=== PATIENT | male | born 1945 | race Caucasian/White ===

== ENCOUNTER 2017-09-16 10:52 | Emergency (ER) | payer MEDICARE, OTHER ==
[~2017-09-16] VITALS: Ht 177.8 cm; Wt 83.9 kg
[~2017-09-16 10:52] MED LIST: ASCO500 PO; ASPI325EC PO; ATOR20 PO; BENZ.5 PO; BENZ2 PO; CALCAVITDA PO; CHOL10002 PO; DILT120ERA PO; DILT240ER PO; DOC250 PO; FISH1000 PO; FLUT.05NI; GLUCOSA; HYDACE10B PO; METO50ER PO; MULVITMIND PO; NIAC500 PO; NIAC500ER PO; NITR.4SL SL; OMEG1CAP30 PO; OMEP20ER PO; PSYLLIUM PO; PYRI100 PO; SELENIUM200 MC1 PO; SIMV10 PO; THIO; THIO2 PO; VITNEPH PO; [UNRECOGNIZED DRUG - OTHER]
[2017-09-16 11:31] LABS: BASOPHILS ABSOLUTE AUTO 0.06 K/mm3 (0.00-0.23); BASOPHILS PERCENT AUTO 1 % (0-2); EOSINOPHILS PERCENT AUTO 2 % (0-6); Hematocrit 42.1 % (37.0-53.0); Hemoglobin 14.7 g/dL (13.5-17.5); IMMATURE GRAN ABSOLUTE AUTO 0.01 K/mm3 (0.00-0.10); IMMATURE GRAN PERCENT AUTO 0 % (0-1); LYMPHOCYTES PERCENT AUTO 21 % (21-46); MONOCYTES ABSOLUTE AUTO 0.51 K/mm3 (0.16-1.47); MONOCYTES PERCENT AUTO 8 % (4-13); Mean Corpuscular HGB Conc 34.9 g/dL (31.5-36.5); Mean Corpuscular Volume 86 fL (80-100); Mean Platelet Volume 11.2 fL (9.1-12.4); NEUTROPHILS ABSOLUTE AUTO 4.58 K/mm3 (1.96-9.15); NEUTROPHILS PERCENT AUTO 69 % (41-73); Platelet Count 206 K/mm3 (150-400); RDW Coefficient Variation 12.6 % (11.7-14.2); RDW Standard Deviation 39.2 fL (35.1-46.3); White Blood Cell Count 6.66 K/mm3 (4.00-11.30)
[2017-09-16 11:50] LABS: Alanine Aminotransfer (ALT/SGP 39 U/L (12-78); Albumin, Blood 3.6 g/dL (3.4-5.0); Alk Phos 63 U/L (50-136); Anion Gap 10 mmol/L (6-16); Aspartate Aminotrans (AST/SGOT 15 U/L (12-37); Bilirubin, Total 0.5 mg/dL (0.1-1.0); Blood Urea Nitrogen 15 mg/dL (8-24); Bun/Creatinine Ratio 23.1 (12.0-20.0); CO2, Blood 24 mmol/L (21-32); Calcium, Blood 9.1 mg/dL (8.5-10.1); Chloride, Blood 105 mmol/L (98-108); Creatinine, Blood 0.65 mg/dL (0.60-1.20); Globulin, Blood 3.7 g/dL (2.2-4.0); Glomerular Filtration Rate >60 (60-); Glucose, Blood 121 mg/dL (70-99); Potassium, Blood 3.8 mmol/L (3.5-5.5); Sodium, Blood 139 mmol/L (136-145); Total Protein, Blood 7.3 g/dL (6.4-8.2); Troponin I <0.015 ng/mL (0.000-0.040)
[2017-09-16] MEDS ORDERED: LISI5 PO (11:54)
[2017-09-16] MEDS ORDERED: PSYSENPA PO (11:55)
[2017-09-16] MEDS ORDERED: METO50 PO (11:55)
[2017-09-16] MEDS ORDERED: Fish Oil 10001000 MG GT (11:55)
== END 2017-09-16 14:37 | disposition home or self-care (01) ==
LOC: ER 10:52
PROVIDERS: Emergency Medicine
DX: R07.89 Other chest pain (principal); Z88.0 Allergy status to penicillin; Z88.8 Allergy status to other drugs, medicaments and biological substances; Z79.899 Other long term (current) drug therapy; Z79.82 Long term (current) use of aspirin; Z87.891 Personal history of nicotine dependence
CPT/HCPCS: 36415; 71046; 80053; 83880; 84484; 85025; 93005; 93010; 99283

== ENCOUNTER 2019-03-29 06:04 | Emergency (ER) | payer OTHER, MEDICARE ==
[~2019-03-29] VITALS: Ht 182.9 cm; Wt 117.9 kg
[~2019-03-29 06:04] MED LIST changes: +Fish Oil 10001000 MG GT; +LISI5 PO; +METO50 PO; +PSYSENPA PO
[2019-03-29 06:53] LABS: BASOPHILS ABSOLUTE AUTO 0.04 K/mm3 (0.00-0.23); BASOPHILS PERCENT AUTO 1 % (0-2); EOSINOPHILS PERCENT AUTO 2 % (0-6); Hematocrit 45.6 % (37.0-53.0); Hemoglobin 15.5 g/dL (13.5-17.5); IMMATURE GRAN ABSOLUTE AUTO 0.03 K/mm3 (0.00-0.10); IMMATURE GRAN PERCENT AUTO 1 % (0-1); LYMPHOCYTES PERCENT AUTO 15 % (21-46); MONOCYTES ABSOLUTE AUTO 0.49 K/mm3 (0.16-1.47); MONOCYTES PERCENT AUTO 8 % (4-13); Mean Corpuscular HGB 29.9 pg (26.0-34.0); Mean Corpuscular Volume 88 fL (80-100); NEUTROPHILS ABSOLUTE AUTO 4.89 K/mm3 (1.96-9.15); NEUTROPHILS PERCENT AUTO 75 % (41-73); Platelet Count 209 K/mm3 (150-400); RDW Coefficient Variation 12.7 % (11.7-14.2); RDW Standard Deviation 41.1 fL (35.1-46.3); Red Blood Cell Count 5.19 M/mm3 (4.30-5.90); White Blood Cell Count 6.55 K/mm3 (4.00-11.30)
[2019-03-29 07:10] LABS: Alanine Aminotransfer (ALT/SGP 46 U/L (12-78); Albumin, Blood 3.7 g/dL (3.4-5.0); Albumin/Globulin Ratio 0.9 (0.8-1.8); Alk Phos 54 U/L (50-136); Anion Gap 8 mmol/L (6-16); Aspartate Aminotrans (AST/SGOT 18 U/L (12-37); Bilirubin, Total 0.4 mg/dL (0.1-1.0); Blood Urea Nitrogen 15 mg/dL (8-24); Bun/Creatinine Ratio 21.3 (12.0-20.0); CO2, Blood 26 mmol/L (21-32); Chloride, Blood 107 mmol/L (98-108); Globulin, Blood 3.9 g/dL (2.2-4.0); Glomerular Filtration Rate >60 (60-); Glucose, Blood 125 mg/dL (70-99); Potassium, Blood 3.9 mmol/L (3.5-5.5); Sodium, Blood 141 mmol/L (136-145); Total Protein, Blood 7.6 g/dL (6.4-8.2)
[2019-03-29] MEDS ORDERED: MOTION RELIEF25 MG PO ×2 (07:54→08:09)
== END 2019-03-29 08:10 | disposition home or self-care (01) ==
LOC: ER 06:04
PROVIDERS: Emergency Medicine
DX: R42 Dizziness and giddiness (principal); Z88.0 Allergy status to penicillin; Z88.8 Allergy status to other drugs, medicaments and biological substances; Z79.899 Other long term (current) drug therapy; Z79.82 Long term (current) use of aspirin; Z87.891 Personal history of nicotine dependence
CPT/HCPCS: 29125; 36415; 80053; 85025; 93005; 93010; 99285-25

== ENCOUNTER 2019-08-07 07:02 | Emergency (ER) | payer MEDICARE ==
[~2019-08-07] VITALS: Ht 182.9 cm; Wt 113.4 kg
[~2019-08-07 07:02] MED LIST changes: +MOTION RELIEF25 MG PO
[2019-08-07 07:53] LABS: BASOPHILS ABSOLUTE AUTO 0.07 K/mm3 (0.00-0.23); BASOPHILS PERCENT AUTO 1 % (0-2); EOSINOPHILS ABSOLUTE AUTO 0.08 K/mm3 (0.00-0.68); EOSINOPHILS PERCENT AUTO 1 % (0-6); Hematocrit 45.8 % (37.0-53.0); Hemoglobin 16.1 g/dL (13.5-17.5); IMMATURE GRAN ABSOLUTE AUTO 0.04 K/mm3 (0.00-0.10); IMMATURE GRAN PERCENT AUTO 0 % (0-1); LYMPHOCYTES ABSOLUTE AUTO 0.81 K/mm3 (0.84-5.20); LYMPHOCYTES PERCENT AUTO 9 % (21-46); MONOCYTES ABSOLUTE AUTO 0.55 K/mm3 (0.16-1.47); MONOCYTES PERCENT AUTO 6 % (4-13); Mean Corpuscular HGB 30.7 pg (26.0-34.0); Mean Corpuscular HGB Conc 35.2 g/dL (31.5-36.5); Mean Corpuscular Volume 87 fL (80-100); Mean Platelet Volume 11.3 fL (9.1-12.4); NEUTROPHILS ABSOLUTE AUTO 7.56 K/mm3 (1.96-9.15); NEUTROPHILS PERCENT AUTO 83 % (41-73); Platelet Count 202 K/mm3 (150-400); RDW Coefficient Variation 12.8 % (11.7-14.2); RDW Standard Deviation 40.5 fL (35.1-46.3); Red Blood Cell Count 5.25 M/mm3 (4.30-5.90); White Blood Cell Count 9.11 K/mm3 (4.00-11.30)
[2019-08-07 08:10] LABS: Alanine Aminotransfer (ALT/SGP 40 U/L (12-78); Albumin, Blood 3.9 g/dL (3.4-5.0); Alk Phos 54 U/L (50-136); Anion Gap 8 mmol/L (6-16); Aspartate Aminotrans (AST/SGOT 17 U/L (12-37); Bilirubin, Total 0.4 mg/dL (0.1-1.0); Blood Urea Nitrogen 22 mg/dL (8-24); Bun/Creatinine Ratio 28.2 (12.0-20.0); CO2, Blood 26 mmol/L (21-32); Calcium, Blood 8.7 mg/dL (8.5-10.1); Chloride, Blood 106 mmol/L (98-108); Creatinine, Blood 0.78 mg/dL (0.60-1.20); Globulin, Blood 3.8 g/dL (2.2-4.0); Glomerular Filtration Rate >60 (60-); Glucose, Blood 118 mg/dL (70-99); Potassium, Blood 3.7 mmol/L (3.5-5.5); Sodium, Blood 140 mmol/L (136-145); Total Protein, Blood 7.7 g/dL (6.4-8.2); Troponin I <0.015 ng/mL (0.000-0.040)
== END 2019-08-07 09:43 | disposition home or self-care (01) ==
LOC: ER 07:02
PROVIDERS: Emergency Medicine
DX: R42 Dizziness and giddiness (principal); R11.2 Nausea with vomiting, unspecified; I25.10 Atherosclerotic heart disease of native coronary artery without angina pectoris; K21.9 Gastro-esophageal reflux disease without esophagitis; F20.9 Schizophrenia, unspecified; F41.9 Anxiety disorder, unspecified; Z87.891 Personal history of nicotine dependence; Z79.899 Other long term (current) drug therapy; Z79.82 Long term (current) use of aspirin
CPT/HCPCS: 36415; 70450; 80053; 84484; 85025; 93005; 93010; 99284-25

== ENCOUNTER 2019-12-30 12:47 | Inpatient (IN) | payer OTHER, MEDICARE ==
[~2019-12-30] VITALS: Ht 182.9 cm; Wt 111.8 kg
[~2019-12-30 12:47] MED LIST changes: +CODACE30 PO; +METPRE4DP PO; +Robaxin-750750 MG PO
[2019-12-30] MEDS ORDERED: ASPI325EC PO (14:53)
[2019-12-30] MEDS ORDERED: ASCO500 PO (14:53)
[2019-12-30] MEDS ORDERED: BENZ1 PO (14:54)
[2019-12-30] MEDS ORDERED: OYSTER SHELL 51 EACH PO (14:55)
[2019-12-30] MEDS ORDERED: LISI5 PO (14:56)
[2019-12-30] MEDS ORDERED: Loratadine10 MG PO (14:56)
[2019-12-30] MEDS ORDERED: DOC250 PO (14:56)
[2019-12-30] MEDS ORDERED: METO50ER PO (14:57)
[2019-12-30] MEDS ORDERED: MULTI VITAMIN1 EACH PO (14:57)
[2019-12-30] MEDS ORDERED: VITAMIN B-625 MG PO (14:58)
[2019-12-30] MEDS ORDERED: THIOTHIXENE PO (14:58)
[2019-12-30] MEDS ORDERED: ZOCOR20 MG PO (14:58)
[2019-12-30 18:04] LABS: BASOPHILS ABSOLUTE AUTO 0.05 K/mm3 (0.00-0.23); BASOPHILS PERCENT AUTO 1 % (0-2); EOSINOPHILS ABSOLUTE AUTO 0.16 K/mm3 (0.00-0.68); EOSINOPHILS PERCENT AUTO 2 % (0-6); Hematocrit 45.2 % (37.0-53.0); Hemoglobin 15.9 g/dL (13.5-17.5); IMMATURE GRAN ABSOLUTE AUTO 0.03 K/mm3 (0.00-0.10); IMMATURE GRAN PERCENT AUTO 0 % (0-1); LYMPHOCYTES ABSOLUTE AUTO 1.07 K/mm3 (0.84-5.20); LYMPHOCYTES PERCENT AUTO 12 % (21-46); MONOCYTES ABSOLUTE AUTO 0.75 K/mm3 (0.16-1.47); MONOCYTES PERCENT AUTO 8 % (4-13); Mean Corpuscular HGB 30.8 pg (26.0-34.0); Mean Corpuscular HGB Conc 35.2 g/dL (31.5-36.5); Mean Corpuscular Volume 87 fL (80-100); Mean Platelet Volume 11.4 fL (9.1-12.4); NEUTROPHILS ABSOLUTE AUTO 7.12 K/mm3 (1.96-9.15); NEUTROPHILS PERCENT AUTO 78 % (41-73); Platelet Count 233 K/mm3 (150-400); RDW Coefficient Variation 12.6 % (11.7-14.2); RDW Standard Deviation 40.2 fL (35.1-46.3); Red Blood Cell Count 5.17 M/mm3 (4.30-5.90); White Blood Cell Count 9.18 K/mm3 (4.00-11.30)
[2019-12-30 18:37] LABS: Alanine Aminotransfer (ALT/SGP 44 U/L (12-78); Albumin, Blood 3.7 g/dL (3.4-5.0); Albumin/Globulin Ratio 0.9 (0.8-1.8); Alk Phos 60 U/L (50-136); Anion Gap 8 mmol/L (6-16); Aspartate Aminotrans (AST/SGOT 17 U/L (12-37); Bilirubin, Total 0.9 mg/dL (0.1-1.0); Blood Urea Nitrogen 12 mg/dL (8-24); Bun/Creatinine Ratio 22.4 (12.0-20.0); CO2, Blood 25 mmol/L (21-32); Calcium, Blood 9.2 mg/dL (8.5-10.1); Chloride, Blood 107 mmol/L (98-108); Creatinine, Blood 0.54 mg/dL (0.60-1.20); Globulin, Blood 4.1 g/dL (2.2-4.0); Glomerular Filtration Rate >60 (60-); Glucose, Blood 118 mg/dL (70-99); Potassium, Blood 3.8 mmol/L (3.5-5.5); Sodium, Blood 140 mmol/L (136-145); Total Protein, Blood 7.8 g/dL (6.4-8.2)
[2019-12-30 19:27] LABS: CPK Creatine Kinase 212 U/L (39-308)
[2019-12-31 03:13] LABS: Source, Urine Catheter
[2019-12-31 03:14] LABS: Bilirubin, Urine Neg (Neg); Blood, Urine 1+ (Neg); Glucose Qualitative, Urine Neg (Neg); Ketones, Urine 3+ (Neg); Leukocyte Esterase, Urine Neg (Neg); Nitrite, Urine Neg (Neg); Protein, Urine 1+ (Neg); Specific Gravity, Urine 1.025 (1.003-1.022); Urobilinogen, Urine 1+ (Normal)
[2019-12-31 03:25] LABS: Appearance, Urine Clear (Clear); Bacteria Not Seen /hpf; Color, Urine Yellow (P-Yellow); Red Blood Cells, Urine 0-2 /hpf (0-2); Squamous Epithelial Cells Not Seen /hpf (Few); White Blood Cells, Urine Not Seen /hpf (0-5)
--- NOTE | 2019-12-31 04:06 | NUR ---
SHIFT SUMMARY: PATIENT ARRIVED TO [facility] AT APPROX 0130 VIA GURNEY FROM ER, SLIDE TRANSFER FROM GURNEY TO BED, MAX ASSIST. PATIENT SKIN IS C/D/I. PATIENT C/O PAIN IN LEGS AND LOWER BACK, SEE EMAR. ADMISSION COMPLETED, PATIENT ORIENTED TO ROOM, CALL LIGHT AND HOSPITAL POLICES. PATIENT BLADDER SCAN READING OVER 700 ML IN THE BLADDER, PATIENT EXPERIENCING SAME ISSUE IN ER. GASPAR PLACED PER BOILING HOUSE OILER MARILY ORDER. VSS, BED LOW AND LOCKED, CALL LIGHT WITHIN REACH.
[2019-12-31 04:37] LABS: BASOPHILS ABSOLUTE AUTO 0.05 K/mm3 (0.00-0.23); BASOPHILS PERCENT AUTO 1 % (0-2); EOSINOPHILS ABSOLUTE AUTO 0.24 K/mm3 (0.00-0.68); EOSINOPHILS PERCENT AUTO 3 % (0-6); Hematocrit 43.8 % (37.0-53.0); Hemoglobin 15.1 g/dL (13.5-17.5); IMMATURE GRAN ABSOLUTE AUTO 0.02 K/mm3 (0.00-0.10); IMMATURE GRAN PERCENT AUTO 0 % (0-1); LYMPHOCYTES ABSOLUTE AUTO 1.58 K/mm3 (0.84-5.20); LYMPHOCYTES PERCENT AUTO 22 % (21-46); MONOCYTES ABSOLUTE AUTO 0.78 K/mm3 (0.16-1.47); MONOCYTES PERCENT AUTO 11 % (4-13); Mean Corpuscular HGB 30.2 pg (26.0-34.0); Mean Corpuscular HGB Conc 34.5 g/dL (31.5-36.5); Mean Corpuscular Volume 88 fL (80-100); Mean Platelet Volume 11.7 fL (9.1-12.4); NEUTROPHILS ABSOLUTE AUTO 4.68 K/mm3 (1.96-9.15); NEUTROPHILS PERCENT AUTO 64 % (41-73); Platelet Count 227 K/mm3 (150-400); RDW Coefficient Variation 12.8 % (11.7-14.2); RDW Standard Deviation 41.3 fL (35.1-46.3); White Blood Cell Count 7.35 K/mm3 (4.00-11.30)
[2019-12-31 04:52] LABS: Anion Gap 6 mmol/L (6-16); Blood Urea Nitrogen 18 mg/dL (8-24); CO2, Blood 26 mmol/L (21-32); Calcium, Blood 9.1 mg/dL (8.5-10.1); Chloride, Blood 107 mmol/L (98-108); Creatinine, Blood 0.64 mg/dL (0.60-1.20); Glomerular Filtration Rate >60 (60-); Glucose, Blood 100 mg/dL (70-99); Potassium, Blood 3.6 mmol/L (3.5-5.5); Sodium, Blood 139 mmol/L (136-145)
--- NOTE | 2019-12-31 07:48 | NUR ---
ASSUMED CARE AT 0700, LAYING IN LOW FOWLERS SUPINE TALKING ON PHONE. MOVES ARMS WITHOUT DIFFICULTY. MOVES BOTH LEGS WITH SLOW MOVEMENT. REPORTS PAIN AND SPASMS DECREASED. A/A/OX4 WITH HX OF SCHIZOPHRENIA AND INTERMITANT FLIGHTS OF IDEAS. PLAN OF CARE REVIEWED FOR DAY, WILL CONTINUE TO MONITOR.
--- NOTE | 2019-12-31 11:19 | NUR ---
ASSISTED TO CHAIR AT BEDSIDE WITH OT, WALKER AND GAIT BELT USED. SLOW AND STEADY ON FEET.
--- NOTE | 2019-12-31 13:41 | NUR ---
HOME MEDS SENT TO PHARMACY FOR STORAGE.
--- NOTE | 2019-12-31 18:14 | NUR ---
SHIFT SUMMARY; A/A/OX3 DURING SHIFT TODAY. PT EVAL AND ASSISTED TO CHAIR WITH GAIT BELT AND WALKER. MOVES ALL FOUR EXTREMETIES, Q2 REPOSITIONING MAINTAINED TODAY. HOME PSYCH MEDS BROUGHT BY FRIEND AND SENT TO PHARMACY FOR HOSPITAL DISPENSE, VERIFIED AND LOCKED IN PT DRAWER. MULTIPLE FLIGHTS OF IDEAS THROUGHOUT SHIFT APPEARING MANIC AT TIMES. GASPAR IN PLACE DRAINING TOÑA URINE TO GRAVITY. CUSTOMER SUCCESS MANAGER WORKER WITH PT FOR POSSIBLE SNIFF PLACEMENT. PT REQUESTS [facility] THAT IS WHERE HIS GIRLFRIEND IS. NO ACUTE CHANGES DURING SHIFT TODAY. WILL CONTINUE TO MONITOR AND TREAT UNTIL CHANGE OF SHIFT.
--- NOTE | 2019-12-31 21:40 | NUR ---
ASSUMED CARE AT 2030. SEE [facility] FOR FULL ASSESSMENT. PATIENT ALERT, TALKING WITH OUT STOPPING. FLIGHT OF IDEAS, THINKING SOMEONE PUT LIBERTY CAP MUSHROOMS ON HIS PIZZA. BED IN LOW POSITION, CALL LIGHT IN REACH.
--- NOTE | 2020-01-01 05:47 | NUR ---
NO CHANGES SINCE INITIAL ASSESSMENT. PATIENT RESTING, LESS FLIGHT OF IDEAS THIS AM
--- NOTE | 2020-01-01 14:40 | NUR ---
IN HOUSE TRANSFER TO MEDICAL FLOOR. ASSUMED CARE, REPORT FROM NOHEMY NAPIER.
--- NOTE | 2020-01-01 18:30 | NUR ---
SHIFT ASSESMENT; IN HOUSE TRANSFER FROM PCU. A/A/OX4 WITH HX OF SCHIZOPHRENIA AND INTERMITANT FLIGHTS OF IDEAS. REMAINS WEAK TO BILATERAL LEGS WITH TINGLING PER PT. MOVES TO CHAIR IN ROOM WITH WALKER AND 1 PERSON ASSIST WITH GAIT BELT. DR. HUMPHREY TO ROOM TODAY FOR CONSULT. SURGERY PLANNED FOR AM, WILL BE NPO AFTER MIDNIGHT. MEDICATED THROUHOUT SHIFT PER ORDERS. KCL INFUSING AT 75ML/HR AT THIS TIME. WILL CONTINUE TO MONITOR AND TREAT PER ORDERS UNTIL CHANGE OF SHIFT.
--- NOTE | 2020-01-02 10:06 | NUR ---
LATE ENTRY 0928 PT TRANSFERED TO [facility] FROM [facility] VIA GURNY. History, Chart, Medications and Allergies reviewed before start of procedure. Lungs clear T/O to Auscultation. Patient confirms NPO status and agrees with scheduled surgery.
--- NOTE | 2020-01-02 10:07 | NUR ---
PT'S GLASSES PLACED IN PACU. PT HAS HIS "GOOD LUCK" NECKLACE PLACED IN A BAG AND PINNED TO HIS GOWN.
--- NOTE | 2020-01-02 12:08 | NUR ---
TRANSFER TO SURGICAL FLOOR PATIENT TRANSPORTED FOR DISCECTOMY THIS MORNING. PATIENT WILL TRANSFER TO SURGICAL FLOOR AFTER SURGERY. REPORT GIVEN TO RECEIVING SURGICAL FLOOR NURSE ABDIRAHMAN.
--- NOTE | 2020-01-02 16:01 | NUR ---
1500 ARRIVED TO 213 FROM PACU, ALERT AND TALKATIVE. PT TELLS ME HE FEELS SO MUCH BETTER AFTER SURGERY THAN HE DID BEFORE SURGERY AND STATES THAT HE HAS NO PAIN AT THIS TIME. MEDIPORE DRESSING DRY AND INTACT TO LUMBAR AREA. PT MOVES ALL EXTREMITIES, DENIES ANY NUMBNESS OR TINGLING.
--- NOTE | 2020-01-02 17:02 | NUR ---
SUMMARY PT DENIES PAIN, LUMBAR DRESSING DRY AND INTACT. PT TALKATIVE, COOPERATIVE WITH FLIGHT OF IDEAS. PT DENIES NUMBNESS OR TINGLING, STATES HE FEELS MUCH BETTER THAB BEFORE SURGERY
[2020-01-03 04:28] LABS: BASOPHILS ABSOLUTE AUTO 0.04 K/mm3 (0.00-0.23); BASOPHILS PERCENT AUTO 0 % (0-2); EOSINOPHILS ABSOLUTE AUTO 0.13 K/mm3 (0.00-0.68); EOSINOPHILS PERCENT AUTO 1 % (0-6); Hematocrit 38.3 % (37.0-53.0); Hemoglobin 13.1 g/dL (13.5-17.5); IMMATURE GRAN ABSOLUTE AUTO 0.02 K/mm3 (0.00-0.10); IMMATURE GRAN PERCENT AUTO 0 % (0-1); LYMPHOCYTES ABSOLUTE AUTO 1.47 K/mm3 (0.84-5.20); LYMPHOCYTES PERCENT AUTO 16 % (21-46); MONOCYTES ABSOLUTE AUTO 0.76 K/mm3 (0.16-1.47); MONOCYTES PERCENT AUTO 8 % (4-13); Mean Corpuscular HGB 30.4 pg (26.0-34.0); Mean Corpuscular HGB Conc 34.2 g/dL (31.5-36.5); Mean Corpuscular Volume 89 fL (80-100); Mean Platelet Volume 11.7 fL (9.1-12.4); NEUTROPHILS ABSOLUTE AUTO 7.04 K/mm3 (1.96-9.15); NEUTROPHILS PERCENT AUTO 75 % (41-73); Platelet Count 208 K/mm3 (150-400); RDW Coefficient Variation 12.4 % (11.7-14.2); RDW Standard Deviation 41.1 fL (35.1-46.3); Red Blood Cell Count 4.31 M/mm3 (4.30-5.90); White Blood Cell Count 9.46 K/mm3 (4.00-11.30)
[2020-01-03 04:51] LABS: Albumin, Blood 2.7 g/dL (3.4-5.0); Anion Gap 5 mmol/L (6-16); Blood Urea Nitrogen 13 mg/dL (8-24); Bun/Creatinine Ratio 23.4 (12.0-20.0); CO2, Blood 25 mmol/L (21-32); Calcium, Blood 8.4 mg/dL (8.5-10.1); Chloride, Blood 110 mmol/L (98-108); Creatinine, Blood 0.56 mg/dL (0.60-1.20); Glomerular Filtration Rate >60 (60-); Glucose, Blood 108 mg/dL (70-99); Magnesium, Blood 1.8 mg/dL (1.6-2.4); Phosphorus, Blood 3.9 mg/dL (2.5-4.9); Sodium, Blood 140 mmol/L (136-145)
--- NOTE | 2020-01-03 05:51 | NUR ---
PATIENT HAS DONE WELL THROUGHOUT THE NIGHT. COMPLAINS OF MILD PAIN WITH MOVING IN BED AND LAYING FLAT. HAS NOT REQUESTED PAIN MEDICATION. HE IS AWAKE AND ALERT AND ORIENTED. HE IS CONVERSATIONAL ABOUT WORLD TOPICS. HIS SPINE DRESSING IS C/D/I. HE STATES THAT HE WOULD LIKE HIS CATHETER OUT SO THAT HE CAN TAKE A SHOWER. wHILE PERFORMING CATH CARE THIS AM, PATIENT STATED TO BE CAREFUL BECAUSE HE CURRENTLY HAS AN OUT BREAK OF HERPES. THERE IS A 2X2 CM RAISED BUMPY REDDENED AREA ON THE VENTRAL SIDE OF THE PENIS. NO OTHER ACUTE CHANGES.
--- NOTE | 2020-01-03 18:51 | NUR ---
SUMMARY: PT IS POD1 DISCECTOMY. NO ACUTE CHANGE TODAY. VSS, A/OX4, DOES SAY RANDOM THINGS AT TIMES. PT ABLE TO WORK WITH PHYSICAL THERAPY TODAY, SEE NOTES. PT LOG ROLLED WHEN REPOSITIONED IN BED. AQUACEL DRESSING CHANGED. PT HAS VOIDED SINCE HUBERT LEZAMA. PT HAS DENIED PAIN, N/V. NO SAFETY CONCERNS AT THIS TIME.
--- NOTE | 2020-01-04 04:59 | NUR ---
POD 2 S/P L2, L3 DISCECTOMY. PT VSS TO NIGHT. AQUACEL DRESSING CDI. PT REP PAIN PARIS, DECLINED NEED FOR PAIN MEDS. PT IS VOIDING URINE W/O DIFFICULTY. PT ASSISTED W/REPOSITIONING IN BED, LOG ROLL FROM SIDE TO SIDE. PT MOVED ALL EXT, DENIED N/T. PT PLEASANT AND COOPERATIVE, DOES APPEAR CONFUSED AT TIMES. BED ALARM ON FOR SAFETY.
--- NOTE | 2020-01-04 17:11 | NUR ---
SUMMARY: NO ACUTE CHANGE TODAY. PT A/O, VSS, MILD CONFUSION AT TIMES. BED ALARM ON FOR SAFETY. DRESSING CHANGED AT SURGICAL SITE X1, SMALL AMT OF SS DRAINAGE PRESENT. WILL CTM. PT UP IN CHAIR FOR MOST OF THE DAY, AND SAT AT EDGE OF THE BED IN THE AFTERNOON. MOVES WELL ONCE STANDING - 1 ASSIST WITH FWW. PT IS STIFF AND SLOW WHEN REPOSITIONING IN BED. PLAN IS FOR SNF. NO ACUTE CONCERNS, WILL REPORT TO MELBA SLATER .
--- NOTE | 2020-01-05 06:48 | NUR ---
SHIFT SUMMARY DISCECTOMY L2-3 POD 3, A/O X4, VSS, TRANFERRED FROM BED TO BEDSIDE CAMMODE AND BACK INDEPENDENTLY W/ 2 PERSON STANDBY ASSIST, REPOSITIONS IN BED INDEPENDENTLY, C/O HEADACHE - GAVE TYLENOL AND PT REPORTED IMPROVEMENT, DENIES PAIN OTHERWISE. CALL LIGHT IN REACH, WILL CONTINUE TO MONITOR AND REPORT TO ONCOMING DAY RN.
--- NOTE | 2020-01-05 13:46 | NUR ---
Family at bedside pt slighly labored and secretions are increasing. review of care needs with family review of pt with nursing. Pt opens eyes when i was talking with family. theraputic time with patietn and family. Will reassess pt symptoms.
--- NOTE | 2020-01-05 15:08 | NUR ---
Met pt. sitting in a chair resting pt. reports doing fine encouraged pt.and prayed for him
--- NOTE | 2020-01-05 16:14 | NUR ---
SHIFT SUMMARY PT HAS DONE WELL T/O SHIFT. AQUACEL DRESSING TO LOWER BACK CHANGED PER PT REQUEST, SCANT AMT DRY DRAINGE PRESENT ON PREVIOUS DRESSING. WAITING APPROVAL FOR PLACEMENT, MENTAL HEALTH EVAL REQUEST FOR PLACEMENT FAXED TO ER FOR DR WAGNER.
--- NOTE | 2020-01-06 06:27 | NUR ---
SHIFT SUMMARY: VSS, NO ACUTE EVENTS OVERNIGHT. HE IS USING THE URINAL WITH ASSISTANCE. HE COMPLAINED OF CONSTIPATION, STATING THAT THE BOWEL MOVEMENT HE HAD YESTERDAY WAS PRODUCED THROUGH MANUAL SELF-DISIMPACTION. HE IS A TWO-PERSON ASSIST TO THE BEDSIDE COMMODE. HE IS TOLERATING PO INTAKE WELL. HE USES HIS CALL LIGHT APPROPRIATELY. AQUACELL C/D&I TO LOWER BACK MIDLINE. HE IS LYING IN BED WITH HIS CALL LIGHT IN REACH. WILL REPORT TO DAY SHIFT RN.
--- NOTE | 2020-01-06 13:32 | NUR ---
timothy of patient with care attendant from [facility] for plan of care. Review of patients pain and comfort needs.
--- NOTE | 2020-01-06 15:46 | NUR ---
Pt.is in bed resting and doing fine , prayed for him.
--- NOTE | 2020-01-06 18:19 | NUR ---
SHIFT SUMMARY PT A&OX3, VSS, POD4, AQUACEL CDI, AMB W/1 ASSIST TO CHAIR/HALLWAY/BRP. PAIN MANAGED WITH TYLENOL. DENIES N&V, [place] PO. DR WAGNER INTO EVAL PT TODAY. WILL REPORT TO ONCOMING NOC RN.
--- NOTE | 2020-01-07 07:21 | NUR ---
SHIFT SUMMARY: PT POD#5 FOR L2 AND L3 DISCECTOMY. AQUACEL TO LOWER BACK C/D/I WITH A SCANT AMOUNT OF DRG VISIBLE. PT A&O X4 WITH PARANOID DELUSIONS THROUGHOUT SHIFT. COOPERATIVE WITH CARE AND ABLE TO ANSWER QUESTIONS. [place] PO. VOIDING WELL IN URINAL- SOMETIMES REQUIRING ASSISTANCE. PT ABLE TO TRANSFER TO CHAIR WITH MINIMAL ASSIST. COMPLIENT WITH ACTIVITY RESTRICTIONS.
--- NOTE | 2020-01-07 11:14 | NUR ---
Pt. is sitting up on his bed and is doing fine prayed for him
--- NOTE | 2020-01-07 19:09 | NUR ---
SUMMARY: NO CHANGE TODAY. VSS, A/O. PT COMPILANT AND FRIENDLY. DOES SHOW SIGNS OF PSYCH HISTORY AND IS OBVIOUS WHEN SPEAKING WITH PT. PT HAS FLIGHT OF IDEAS OFTEN. PT IS DOING WELL WITH MOBILITY , UP WITH 1 ASSIST TO CHAIR AND ABLE TO SHOWER TODAY AND WALK IN HALLS. SURGICAL SITE WNL. PLAN IS TO DC TOMORROW TO [facility]. REPORT PASSED TO NOHEMY AHMADI
--- NOTE | 2020-01-07 19:59 | NUR ---
NOTED DRAINAGE ON AQUACELL SLIGHTLY LARGER THAN A QUARTER. APPLIED NEW AQUACELL NOTING SEROSANGUINOUS DRAINAGE FROM SUPERIOR END OF INCISION. WILL MONITOR FOR ADDITIONAL DRAINAGE T/O SHIFT.
--- NOTE | 2020-01-08 04:28 | NUR ---
SHIFT SUMMARY POD 6 DISCECTOMY L2-3, A/O X4 W/ OCCASIONAL FLIGHT OF IDEAS, VSS, TOLERATING PO, VOIDING WELL, AMBULATING W/ STANDBY ASSISTANCE, PLAN TO DC IN THE MORNING. CALL LIGHT IN REACH, WILL CONTINUE TO MONITOR AND REPORT TO ONCOMING DAY RN.
--- NOTE | 2020-01-08 10:00 | NUR ---
[facility] transport here for pt; attempted to call report, but RN to give report to is providing pt care. left number for RN to call for report
--- NOTE | 2020-01-08 10:12 | NUR ---
provided report to NOHEMY Ochoa at the [place]
== END 2020-01-08 10:15 | DRG 29 ==
LOC: ER 12:47 → MEDS 12:48 → PCU 12:48 → MEDS 01-01 14:11 → SURS 01-02 13:16
PROVIDERS: Emergency Medicine; Internal Medicine Gastroenterology; Nurse Practitioner Acute Care; Orthopaedic Surgery; ADMIT Family Medicine
PROC: 0ST20ZZ Resection of Lumbar Vertebral Disc, Open Approach (ICD-10-PCS; principal; 2020-01-02 12:00)
DX: G83.4 Cauda equina syndrome (principal); F34.9 Persistent mood [affective] disorder, unspecified; M51.06 Intervertebral disc disorders with myelopathy, lumbar region; M51.16 Intervertebral disc disorders with radiculopathy, lumbar region; R32 Unspecified urinary incontinence; I25.10 Atherosclerotic heart disease of native coronary artery without angina pectoris; E78.5 Hyperlipidemia, unspecified; F20.9 Schizophrenia, unspecified; K21.9 Gastro-esophageal reflux disease without esophagitis; E78.00 Pure hypercholesterolemia, unspecified; Z87.891 Personal history of nicotine dependence; M16.12 Unilateral primary osteoarthritis, left hip; Z96.642 Presence of left artificial hip joint; I10 Essential (primary) hypertension
CPT/HCPCS: 36415; 51702; 51798; 72148; 80048; 80053; 80069; 81001; 82550; 82947; 83735; 85025; 88304; 96372; 96374; 96375; 96376; 97110; 97116; 97162; 97164; 97166; 97530; 97535; 99285-25; A9270; A9270-GY; G0008; G0378; J0690; J1030; J1040; J1100; J1170; J1650; J1885; J2060; J2250; J2405; J2704; J3010; J3370; J3480; J7120; Q2038; U0003

== ENCOUNTER 2022-08-21 12:18 | Emergency (ER) | payer MEDICARE ==
[~2022-08-21] VITALS: Ht 182.9 cm; Wt 85.7 kg
[~2022-08-21 12:18] MED LIST changes: +BENZ1 PO; +Loratadine10 MG PO; +MULTI VITAMIN1 EACH PO; +OYSTER SHELL 51 EACH PO; +THIOTHIXENE PO; +VITAMIN B-625 MG PO; +ZOCOR20 MG PO
[2022-08-21 12:32] VITALS: BP 156/84
[2022-08-21 15:29] LABS: Source, Urine Clean Catch
[2022-08-21 15:36] LABS: Appearance, Urine Clear (Clear); Bilirubin, Urine Neg (Neg); Blood, Urine Neg (Neg); Color, Urine Yellow (P-Yellow); Glucose Qualitative, Urine Neg (Neg); Ketones, Urine Neg (Neg); Leukocyte Esterase, Urine Neg (Neg); Nitrite, Urine Neg (Neg); Protein, Urine Neg (Neg); Specific Gravity, Urine 1.015 (1.003-1.022); Urobilinogen, Urine NORM (Normal)
== END 2022-08-21 16:13 | disposition home or self-care (01) ==
LOC: ER 12:18
PROVIDERS: Student in an Organized Health Care Education/Training Program
DX: K46.9 Unspecified abdominal hernia without obstruction or gangrene (principal); Z88.0 Allergy status to penicillin; Z88.8 Allergy status to other drugs, medicaments and biological substances; Z88.1 Allergy status to other antibiotic agents; Z79.899 Other long term (current) drug therapy; Z79.82 Long term (current) use of aspirin; Z87.891 Personal history of nicotine dependence; I25.10 Atherosclerotic heart disease of native coronary artery without angina pectoris; K21.9 Gastro-esophageal reflux disease without esophagitis; E78.00 Pure hypercholesterolemia, unspecified
CPT/HCPCS: 81003; 99283

== ENCOUNTER 2022-11-08 05:47 | Day surgery (SDC) | payer MEDICARE ==
[2022-11-08] VITALS (11 sets, daily range): BP systolic 113–130; BP diastolic 61–86
[~2022-11-08] VITALS: Ht 185.4 cm; Wt 79.7 kg
[2022-11-08] MEDS ORDERED: GLUCHON PO (06:32)
[2022-11-08] MEDS ORDERED: Selenomax200 MCG PO (06:32)
--- NOTE | 2022-11-08 07:22 | NUR ---
Ambulatory in Day Surgery Patient confirms NPO status and agrees with scheduled surgery. Pre-Op teaching done. Pt verbalizes understanding. History, Chart, Medications and Allergies reviewed before start of procedure. PT DROVE HIMSELF HERE AND SAID THAT HE WAS GOING TO CALL FATHER HAIM TO SEE IF HE COULD HELP HIM GET A RIDE HOME. DR. GALVAN AWARE.
--- NOTE | 2022-11-08 08:30 | NUR ---
PT PROVIDED TWO NAMES OF FRIENDS FOR POSSIBLE RIDES HOME "[employer]" NEITHER PHONE NUMBER PROVIDED WAS ACCURATE. PHONE CALL TO PT'S SISTER ZARI MAN AND HER DON RE: PT'S LACK OF RIDE HOME. THEY DO NOT LIVE LOCALLY AND WILL BE VISITING PT IN A COUPLE OF DAYS BUT WILL TRY AND SEE IF THEY CAN CONTACT SOMEONE LOCALLY TO PROVIDE HIM A RIDE
--- NOTE | 2022-11-08 11:40 | NUR ---
Patient up to Ambulate independently. Gait steady. Discharge instructions reviewed with patient. Patient verbalizes understanding. Copy given to patient to take home, WELL ANGELA (FAMILY FRIEND,RIDE). Patient States Post-Procedure ride home has been arranged. Discharged via wheelchair to private car for ride home. PT TOLERATING PO. ABD SITES C/D/I. IV OUT WNL. COPIES OF DISCHARGE PAPERWORK FOR FAMILY OK PER PT.
== END 2022-11-08 11:40 | disposition home or self-care (01) ==
LOC: ORSCMMR 05:47 → ORD 07:30 → ORSCMMR 11:40
PROVIDERS: Surgery
PROC: 8E0W4CZ Robotic Assisted Procedure of Trunk Region, Percutaneous Endoscopic Approach (ICD-10-PCS; principal; 2022-11-08 07:30)
PROC: 0YU54JZ Supplement Right Inguinal Region with Synthetic Substitute, Percutaneous Endoscopic Approach (ICD-10-PCS; principal; 2022-11-08 07:30)
DX: K40.90 Unilateral inguinal hernia, without obstruction or gangrene, not specified as recurrent (principal); I10 Essential (primary) hypertension; I25.10 Atherosclerotic heart disease of native coronary artery without angina pectoris; E78.5 Hyperlipidemia, unspecified; I25.2 Old myocardial infarction; F20.9 Schizophrenia, unspecified; Z79.899 Other long term (current) drug therapy; Z79.82 Long term (current) use of aspirin; Z87.891 Personal history of nicotine dependence
CPT/HCPCS: 49650; S2900; C1781; J0690; J1100; J1885; J2371; J2405; J2704; J3010; J7120

== ENCOUNTER → 2022-12-28 | Emergency (ER) | payer OTHER ==
[~2022-12-28] VITALS: Ht 182.9 cm; Wt 81.7 kg
[~2022-12-28] MED LIST changes: +GLUCHON PO; +Selenomax200 MCG PO
[2022-12-28 23:28] VITALS: BP 161/75
== END ==
LOC: ER 23:27
DX: Z00.8 Encounter for other general examination (principal); Z88.0 Allergy status to penicillin; Z88.8 Allergy status to other drugs, medicaments and biological substances; Z88.1 Allergy status to other antibiotic agents; Z79.899 Other long term (current) drug therapy; Z79.82 Long term (current) use of aspirin; Z87.891 Personal history of nicotine dependence; I25.10 Atherosclerotic heart disease of native coronary artery without angina pectoris; K21.9 Gastro-esophageal reflux disease without esophagitis; E78.00 Pure hypercholesterolemia, unspecified
CPT/HCPCS: 99283

== ENCOUNTER 2023-03-29 07:53 | Day surgery (SDC) | payer OTHER ==
[~2023-03-29] VITALS: Ht 182.9 cm; Wt 82.4 kg
[~2023-03-29 07:53] MED LIST changes: +FLONASE ALLERG9.9 M2; +OMEGA-3 FISH O1 EAC6 PO; +VALA500 PO
[2023-03-29] MEDS ORDERED: GLUCOSAMINE-CH1 EA48 PO (08:46)
[2023-03-29] MEDS ORDERED: Selenomax200 MCG PO (08:46)
[2023-03-29 09:50] VITALS: BP 134/69
== END 2023-03-29 16:03 | disposition home or self-care (01) ==
LOC: ORSCSDS 07:53
PROVIDERS: Ophthalmology
PROC: 08RJ3JZ Replacement of Right Lens with Synthetic Substitute, Percutaneous Approach (ICD-10-PCS; principal; 2023-03-29 09:30)
DX: H25.11 Age-related nuclear cataract, right eye (principal); I10 Essential (primary) hypertension; I25.10 Atherosclerotic heart disease of native coronary artery without angina pectoris; E78.5 Hyperlipidemia, unspecified; F20.9 Schizophrenia, unspecified; E16.2 Hypoglycemia, unspecified; K21.9 Gastro-esophageal reflux disease without esophagitis; Z79.82 Long term (current) use of aspirin; Z79.899 Other long term (current) drug therapy
CPT/HCPCS: J2250; J3010; J3301; J7040; V2632

== ENCOUNTER 2023-04-05 08:24 | Day surgery (SDC) | payer OTHER ==
[~2023-04-05] VITALS: Ht 182.9 cm; Wt 81.8 kg
[~2023-04-05 08:24] MED LIST changes: +GLUCOSAMINE-CH1 EA48 PO
[2023-04-05] MEDS ORDERED: NAPROXEN250 M1 PO (09:36)
--- NOTE | 2023-04-05 09:52 | NUR ---
04/05/23 0952 Jenna Sanchez AND THERESA PLACED PER ORDERS.
[2023-04-05 10:38] VITALS: BP 107/61
--- NOTE | 2023-04-05 10:52 | NUR ---
04/05/23 1052 Benedict Vieira IV REMOVED INTACT. SITE WNL.
== END 2023-04-05 10:58 | disposition home or self-care (01) ==
LOC: ORSCSDS 08:24
PROVIDERS: Ophthalmology
PROC: 08RK3JZ Replacement of Left Lens with Synthetic Substitute, Percutaneous Approach (ICD-10-PCS; principal; 2023-04-05 10:00)
DX: H25.12 Age-related nuclear cataract, left eye (principal); Z96.1 Presence of intraocular lens; E78.5 Hyperlipidemia, unspecified; I25.10 Atherosclerotic heart disease of native coronary artery without angina pectoris; I10 Essential (primary) hypertension; F20.9 Schizophrenia, unspecified; Z79.82 Long term (current) use of aspirin; Z79.899 Other long term (current) drug therapy
CPT/HCPCS: J2250; J3010; J3301; J7040; V2632

== ENCOUNTER → 2023-09-24 | Outpatient (CLI) | payer MEDICARE ==
[~2023-09-24] MED LIST changes: +NAPROXEN250 M1 PO
[2023-09-24 09:12] LABS: BASOPHILS ABSOLUTE AUTO 0.07 K/mm3 (0.00-0.23); BASOPHILS PERCENT AUTO 1 % (0-2); EOSINOPHILS ABSOLUTE AUTO 0.27 K/mm3 (0.00-0.68); EOSINOPHILS PERCENT AUTO 3 % (0-6); Hematocrit 39.5 % (37.0-53.0); Hemoglobin 13.5 g/dL (13.5-17.5); IMMATURE GRAN ABSOLUTE AUTO 0.03 K/mm3 (0.00-0.10); IMMATURE GRAN PERCENT AUTO 0 % (0-1); LYMPHOCYTES ABSOLUTE AUTO 1.13 K/mm3 (0.84-5.20); LYMPHOCYTES PERCENT AUTO 12 % (21-46); MONOCYTES ABSOLUTE AUTO 0.74 K/mm3 (0.16-1.47); MONOCYTES PERCENT AUTO 8 % (4-13); Mean Corpuscular HGB 30.6 pg (26.0-34.0); Mean Corpuscular HGB Conc 34.2 g/dL (31.5-36.5); Mean Corpuscular Volume 90 fL (80-100); Mean Platelet Volume 10.5 fL (9.1-12.4); NEUTROPHILS ABSOLUTE AUTO 7.53 K/mm3 (1.96-9.15); NEUTROPHILS PERCENT AUTO 77 % (41-73); Platelet Count 259 K/mm3 (150-400); RDW Coefficient Variation 12.8 % (11.7-14.2); RDW Standard Deviation 41.9 fL (35.1-46.3); Red Blood Cell Count 4.41 M/mm3 (4.30-5.90); White Blood Cell Count 9.77 K/mm3 (4.00-11.30)
[2023-09-24 09:22] LABS: Albumin, Blood 3.1 g/dL (3.4-5.0); Albumin/Globulin Ratio 0.7 (0.8-1.8); Bilirubin, Total 0.5 mg/dL (0.1-1.0); Bun/Creatinine Ratio 21.4 (12.0-20.0); Calcium, Blood 9.1 mg/dL (8.5-10.1); Creatinine, Blood 0.7 mg/dL (0.60-1.20); Globulin, Blood 4.6 g/dL (2.2-4.0); Potassium, Blood 3.9 mmol/L (3.5-5.5); Total Protein, Blood 7.7 g/dL (6.4-8.2)
== END | disposition home or self-care (01) ==
LOC: LAB SHORT 09:07 → LAB 09:07
PROVIDERS: Physician Assistant
DX: R53.83 Other fatigue (principal)
CPT/HCPCS: 80053; 85025